=== PATIENT | female | born 2000 | race Two or more races ===

== ENCOUNTER 2020-03-03 09:31 | Day surgery (SDC) | payer BC, MEDICAID ==
[~2020-03-03 09:31] MED LIST: Sodium Chloride 0.9% 10 ML Syringe FLUSH PRN; cefOXitin 2 GM Vial IVPUSH ONE; cefOXitin 2 GM in Sodium Chloride 0.9% 100 ML IV ONE
[2020-03-03] MEDS ORDERED: Ketorolac 30 MG/ML SDV IVPUSH ONE (09:32)
[2020-03-03] MEDS ORDERED: fentaNYL 100 MCG/2 ML SDV IV ONE ×2 (09:32)
[2020-03-03] MEDS ORDERED: Metoprolol Tartrate 5 MG/5 ML SDV IV ONE (09:32)
[2020-03-03] MEDS ORDERED: Ondansetron 4 MG/2 ML SDV IVPUSH ONE (09:32)
[2020-03-03] MEDS ORDERED: Rocuronium 50 MG/5 ML Vial IV ONE (09:32)
[2020-03-03] MEDS ORDERED: Propofol 200 MG/20 ML SDV IV ONE (09:32)
[2020-03-03] MEDS ORDERED: HYDROmorphone 2 MG/ML SDV IV ONE (09:32)
[2020-03-03] MEDS ORDERED: Sugammadex Sodium 200 MG/2 ML VIAL IV ONE (09:32)
[2020-03-03] MEDS ORDERED: Dexamethasone 4 MG/ML 5 ML MDV IVPUSH ONE (09:32)
[2020-03-03] MEDS ORDERED: Lactated Ringers 1,000 ML IV ONE (09:32)
[2020-03-03] MEDS ORDERED: Lidocaine 2% 5 ML SDV INJECT ONE (09:32)
[2020-03-03] MEDS ORDERED: Midazolam 1 MG/ML 2 ML SDV IV ONE (09:32)
[2020-03-03] MEDS: Lactated Ringers 1,000 ML IV SCH ×2 (10:15→12:53)
[2020-03-03] MEDS ORDERED: Lidocaine 1% with EPINEPHrine 1:100,000 20 ML MDV INJECT ONE (11:30)
[2020-03-03] MEDS ORDERED: Bupivacaine 0.5% 30 ML SDV INJECT ONE (11:30)
--- NOTE | 2020-03-03 12:32 | PCM.OPNOTE ---
- General Post-Op/Procedure Note Date of Surgery/Procedure: 03/03/20 Operative Procedure(s): lap cholecystectomy Findings: critical view obtained. gallbladder with multiple gallstones Pre Op Diagnosis: gallstones without obstruction or cholecystitis Post-Op Diagnosis: Same Anesthesia Technique: General ET Tube, Local (10 ml 1% lido with epi/0.5% buvipicaine) Primary Surgeon: Ramesh Caldwell Anesthesia Provider: Kareem Hawkins Pathology: gallbladder and contents Complications: None Condition: Good Free Text/Narrative:: see dictation
[2020-03-03] MEDS ORDERED: Acetaminophen/HYDROcodone 325-5 MG Tab PO PRN (12:37)
[2020-03-03] MEDS ORDERED: Albuterol 0.083% 2.5 MG/3 ML Neb Soln NEB ONE (12:46)
[2020-03-03 13:47] VITALS: BP 103/60; PULSE 97
--- NOTE | 2020-03-03 14:15 | OR ---
DATE OF OPERATION: 03/03/2020 SURGEON: Ramesh Caldwell MD PROCEDURE PERFORMED: Laparoscopic cholecystectomy. PREOPERATIVE DIAGNOSIS: Cholelithiasis without obstruction or cholecystitis. POSTOPERATIVE DIAGNOSIS: Cholelithiasis without obstruction or cholecystitis. INDICATIONS FOR PROCEDURE: This is a 19-year-old female who was referred with symptomatic gallstones. She was offered and accepted a laparoscopic cholecystectomy. INTRAOPERATIVE FINDINGS: As follows: A critical view was obtained. The gallbladder was noted to be packed with gallstones. During the procedure, a total of 10 mL of 1:1 mixture of 1% lidocaine with epinephrine and 0.5% bupivacaine was used to infiltrate our trocar sites. DESCRIPTION OF OPERATION: After an excellent general anesthetic was administered via endotracheal tube, the patient was prepped and draped in usual sterile manner. Local was used to first infiltrate the area just below the umbilicus in the midline. A small vertical midline incision was carried out. Blunt dissection was carried out exposing the fascia. Two stay sutures of 0 Vicryl were placed on either side of the midline fascia. This allowed us to elevate the fascia and incised it with a #15 scalpel blade and entered the peritoneal cavity. After digital palpation to ensure no adhesions, a 10.5 mm Olegario trocar was inserted into the patient's abdomen. The abdomen was then insufflated to 15 mmHg using carbon dioxide. The patient was placed in reverse Trendelenburg position with an airplane to the left and three 5 mm ports were placed, one in the midline epigastrium and two below the right costal margin at the proximal level of the midclavicular and anterior axillary line. This was done by infiltrating the full thickness of the abdominal wall making a stab incision and then inserting the trocars. The gallbladder was easily visualized. This was grasped and retracted in a cephalad fashion. The infundibulum was grasped and this allowed us to dissect free the cystic duct and the cystic artery. After obtaining the critical view, 2 clips were placed proximally on the cystic duct and one distally and two clips were placed proximally on the cystic artery and one distally and the structures were transected. Careful L- hook cautery dissection was then used to dissect the gallbladder free from the gallbladder fossa. The specimen was passed into a specimen bag and delivered out through the periumbilical port. The area of the gallbladder fossa was irrigated. No active bleeding was noted and excellent hemostasis was noted. The right hepatic gutter was irrigated until clear as well. Three 5 mm ports were then removed under direct visualization and the pneumoperitoneum was released. The periumbilical fascial defect was closed with a [id number] 0 Vicryl and the 2-0 Vicryl stay sutures were tied to each other as well. The skin was closed with ghanshyam. Needle, sponge, and instrument counts were reported as correct. The patient was taken to recovery room in good condition. /[id number] /MODL
== END 2020-03-03 14:15 | disposition home or self-care (01) ==
LOC: FB.SDS 09:31
PROVIDERS: ATTEND Surgery
DX: K80.10 Calculus of gallbladder with chronic cholecystitis without obstruction (principal); E03.9 Hypothyroidism, unspecified; Z79.899 Other long term (current) drug therapy
CPT/HCPCS: 00790; 47562; 81025; 88304; 94150; A9270; J0694; J1100; J1170; J1885; J2001; J2250; J2405; J2704; J3010; J3490; J7120

== ENCOUNTER 2021-01-20 10:38 | Emergency (ER) | payer MEDICAID ==
--- NOTE | 2021-01-20 11:10 | EDM.PDOC ---
ED HPI GENERAL MEDICAL PROBLEM - General Stated Complaint: NOT FEELING WELL Time Seen by Provider: 01/20/21 11:08 Source of Information: Reports: Patient History Limitations: Reports: No Limitations - History of Present Illness INITIAL COMMENTS - FREE TEXT/NARRATIVE: 20-year-old female who had onset of fever, nasal congestion, sore throat and generalized malaise on 01/16/2021. She has been seen at the clinic on the , the in the first. Yesterday she was having ear pain on the right and she was placed on an antibiotic to treat for an ear infection. She states that her fevers mostly have been at night and she has had 103F. She reports the vomiting has mostly been when she has tried to eat and she states she has had 2 episodes of vomiting yesterday but none today. She has been able to drink liquids without vomiting. She feels very hungry and does not feel that she can eat. His have sore throat and right ear pain that she rates as an 8/10. It is sharp and stabbing. She has had no diarrhea. No weakness or dizziness. No abdominal pain. She states she just feels hungry and can't eat There are no other associated signs or symptoms. There are no other modifying factors. 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) - Related Data Allergies Allergy/AdvReac Type Severity Reaction Status Date / Time No Known Allergies Allergy Verified 03/03/20 10:07 Home Meds: Home Meds DULoxetine [Cymbalta] 30 mg PO DAILY 03/02/20 [History] Ondansetron [Zofran ODT] 4 mg PO Q6H PRN #12 tab.dis 01/20/21 [Rx] Past Medical History HEENT History: Reports: Impaired Vision 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: MENORRHAGIA WITH REGULAR CYCLE Neurological History: Reports: Headaches, Chronic, Vertigo Endocrine/Metabolic History: Reports: Hypothyroidism Hematologic History: Reports: Anemia - Past Surgical History GI Surgical History: Reports: Cholecystectomy Social & Family History - Tobacco Use Tobacco Use Status *Q: Unknown Ever Used Tobacco (Nonsmoker) - Caffeine Use Caffeine Use: Reports: Coffee - Alcohol Use Alcohol Use History: No ED ROS GENERAL - Review of Systems Review Of Systems: See Below Constitutional: Reports: Fever, Chills, Malaise HEENT: Reports: Ear Pain, Throat Pain, Other (Nasal congestion) Respiratory: Reports: Cough. Denies: Shortness of Breath Cardiovascular: Denies: Chest Pain, Palpitations GI/Abdominal: Reports: Nausea, Vomiting. Denies: Abdominal Pain : Denies: Dysuria, Frequency Musculoskeletal: Denies: Neck Pain, Arm Pain Skin: Denies: Diaphoresis, Rash Neurological: Denies: Dizziness, Headache Hematologic/Lymphatic: Reports: Anemia ED EXAM, GENERAL - Physical Exam Exam: See Below Exam Limited By: No Limitations General Appearance: Alert, WD/WN, No Apparent Distress Eye Exam: Bilateral Eye: EOMI, Normal Inspection (Sclera are anicteric) Ears: Normal External Exam, Hearing Grossly Normal Ear Exam: Bilateral Ear: Auricle Normal Nose: Nasal Swelling, Nasal Drainage Throat/Mouth: Normal Voice, No Airway Compromise, Other (Posterior pharyngeal erythema. No evidence of peritonsillar abscess.) Head: Atraumatic, Normocephalic Neck: Normal Inspection, Supple, Full Range of Motion, Lymphadenopathy (R), Lymphadenopathy (L) Respiratory/Chest: No Respiratory Distress, Lungs Clear, Normal Breath Sounds, No Accessory Muscle Use, Chest Non-Tender Cardiovascular: Normal Peripheral Pulses, Regular Rate, Rhythm, No JVD, No Murmur Peripheral Pulses: 2+: Radial (L), Radial (R), Dorsalis Pedis (L), Dorsalis Pedis (R) GI/Abdominal: Normal Bowel Sounds, Soft, Non-Tender, No Mass Back Exam: Normal Inspection, Full Range of Motion Extremities: Normal Inspection, Normal Range of Motion, No Pedal Edema, Normal Capillary Refill Neurological: Alert, Oriented, CN II-XII Intact, Normal Cognition, No Motor/Sensory Deficits Psychiatric: Normal Mood Skin Exam: Warm, Dry, Intact, Normal Color, No Rash Course - Vital Signs Last Recorded V/S: Last Vital Signs Temp 36.4 C 01/20/21 11:31 Pulse 81 01/20/21 11:31 Resp 17 01/20/21 11:31 BP 119/53 L 01/20/21 11:31 Pulse Ox 98 01/20/21 11:31 - Orders/Labs/Meds Labs: Laboratory Tests 01/20/21 Range/Units 11:11 SARS-CoV-2 RNA (UNRULY) Negative (NEGATIVE) Meds: Medications Discontinued Medications Generic Name Dose Route Start Last Admin Trade Name Freq PRN Reason Stop Dose Admin Ondansetron HCl 4 mg 01/20/21 11:32 01/20/21 12:00 Ondansetron 4 Mg Tab.Dis PO 01/20/21 11:33 4 mg ONETIME ONE Administration - Re-Assessments/Exams Free Text/Narrative Re-Assessment/Exam: 01/20/21 12:24: Rapid Covid test was negative. The patient reports that her nausea is decreased after the Zofran. She has had no vomiting here. She has remained hemodynamically stable. My exam of her ears showed no evidence of infection. She does have the pharyngitis and I have told her that she should continue the antibiotics that she was given yesterday. I will also give the patient a prescription of Zofran that she can use for nausea. She really needs to increase her fluid intake. She can take ibuprofen and Tylenol as needed for fever. Precautions and reasons for return to the emergency department were discussed with the patient while she was in the emergency department and were detailed in the patient's discharge instructions. Departure - Departure Time of Disposition: 12:30 Disposition: Home, Self-Care 01 Condition: Good Clinical Impression: Pharyngitis Qualifiers: Pharyngitis/tonsillitis etiology: unspecified etiology Qualified Code(s): J02.9 - Acute pharyngitis, unspecified Vomiting Qualifiers: Vomiting type: unspecified Vomiting Intractability: non-intractable Nausea presence: with nausea Qualified Code(s): R11.2 - Nausea with vomiting, unspecified - Discharge Information Prescriptions: Ondansetron [Zofran ODT] 4 mg PO Q6H PRN #12 tab.dis PRN Reason: Nausea/Vomiting Instructions: Nausea and Vomiting, Adult, [id number], Pharyngitis, [id number] Referrals: PCP,Not In Area [Primary Care Provider] - Forms: ED Department Discharge Additional Instructions: Your rapid Covid test again was negative today. Your ear did not appear to be infected on my exam. Your throat is still red. I would recommend that you take the antibiotic prescribed yesterday and complete this antibiotic as directed by the doctor yesterday. You also need to increase your fluid intake. You can take Tylenol and ibuprofen as needed for fever or pain. I also have sent a prescription for Zofran (nausea medicine) to your pharmacy in [place] ([facility]). You should take this as needed for nausea or vomiting. Back to the emergency department for acquits down, difficulty breathing, or weakness or any other concerning signs or symptoms.
[2021-01-20] MEDS ORDERED: Ondansetron 4 MG Tab.DIS PO ONE (11:32)
[2021-01-20 11:36] VITALS: BP 119/53; PULSE 81
== END 2021-01-20 12:50 | disposition home or self-care (01) ==
LOC: FB.ED 10:38
DX: J02.9 Acute pharyngitis, unspecified (principal); R11.2 Nausea with vomiting, unspecified; E03.9 Hypothyroidism, unspecified; Z79.899 Other long term (current) drug therapy; Z20.822 Contact with and (suspected) exposure to COVID-19
CPT/HCPCS: 87635; 99284; A9270; U0002

== ENCOUNTER 2021-04-11 23:31 | Emergency (ER) | payer MEDICAID ==
[2021-04-11] MEDS ORDERED: Sodium Chloride 0.9% 10 ML Syringe FLUSH PRN (23:37)
[2021-04-12] MEDS: Sodium Chloride 0.9% 1,000 ML IV ONE (01:54)
[2021-04-12] MEDS: Ondansetron 4 MG/2 ML SDV IVPUSH ONE (02:00)
[2021-04-12] MEDS: Morphine 4 MG/ML VIAL IVPUSH ONE (02:04)
[2021-04-12] MEDS: Ketorolac 30 MG/ML SDV IVPUSH ONE (02:11)
[2021-04-12] MEDS: Iopamidol 755 Mg/ML 100 ML Bottle IV ONE (02:21)
--- NOTE | 2021-04-12 02:43 | EDM.PDOC ---
ED HPI GENERAL MEDICAL PROBLEM - General Chief Complaint: Abdominal Pain Stated Complaint: ABD PAIN, COUGH, SORE THROAT Time Seen by Provider: 04/12/21 01:20 Source of Information: Reports: Patient History Limitations: Reports: No Limitations - History of Present Illness INITIAL COMMENTS - FREE TEXT/NARRATIVE: Patient presented to the ED because of headache and abdominal pain. the headache is bifrontal,throbbing with associated nausea and vomiting x1. She also c/o epigastric and RUQ pain, 02/27. there is no fever, chills, cough or cold symptoms. No UTI s/s or changes in bowel movements. 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: MENORRHAGIA WITH REGULAR CYCLE Other Musculoskeletal History: ULNAR NEUROPATHY OF BOTH UPPER EXTREMITIES Neurological History: Reports: Headaches, Chronic, Vertigo Other Psychiatric History: PSYCHOLOGICAL/ PHYSICAL STRESS Endocrine/Metabolic History: Reports: Hypothyroidism Other Endocrine/Metabolic History: HYPOTHYROIDISM Hematologic History: Reports: Anemia - Past Surgical History GI Surgical History: Reports: Cholecystectomy Social & Family History - Family History Family Medical History: No Pertinent Family History - Tobacco Use Tobacco Use Status *Q: Never Tobacco User - Caffeine Use Caffeine Use: Reports: Energy Drinks Other Caffeine Use: rare - Recreational Drug Use Recreational Drug Use: No ED ROS GENERAL - Review of Systems Review Of Systems: See Below Constitutional: Reports: No Symptoms HEENT: Reports: No Symptoms Cardiovascular: Reports: No Symptoms Endocrine: Reports: No Symptoms GI/Abdominal: Reports: Abdominal Pain : Reports: No Symptoms Musculoskeletal: Reports: No Symptoms Skin: Reports: No Symptoms Neurological: Reports: No Symptoms Psychiatric: Reports: No Symptoms ED EXAM, GI/ABD - Physical Exam Exam: See Below Exam Limited By: No Limitations General Appearance: Alert, No Apparent Distress Ears: Normal External Exam Nose: Normal Inspection Throat/Mouth: Normal Inspection Head: Atraumatic Neck: Normal Inspection, Supple, Non-Tender Respiratory/Chest: No Respiratory Distress, Lungs Clear, Normal Breath Sounds Cardiovascular: Normal Peripheral Pulses, Regular Rate, Rhythm, No Edema, No JVD, No Murmur, No Rub GI/Abdominal Exam: Normal Bowel Sounds, Soft, No Organomegaly, Other (epigastric tenderness) Extremities: Normal Inspection, Normal Range of Motion, Non-Tender, No Pedal Edema, Normal Capillary Refill Neurological: Alert, Oriented, CN II-XII Intact Psychiatric: Normal Affect, Normal Mood Skin Exam: Warm, Intact Course - Vital Signs Text/Narrative:: Lab and CT abd/pelvis result was reviewed and discussed with patient Toradol 30 mg IV x1 Morphine 4 mg IV x1 Zofran 4 mg IV x1 Protonix 80 mg IV x1 NS 1 L bolus Last Recorded V/S: Last Vital Signs Temp 37.2 C 04/12/21 03:40 Pulse 87 04/12/21 03:40 Resp 18 04/12/21 03:40 BP 106/68 04/12/21 03:40 Pulse Ox 99 04/12/21 03:40 - Orders/Labs/Meds Labs: Laboratory Tests 04/11/21 04/11/21 04/11/21 Range/Units 22:40 22:40 22:40 WBC 9.5 (3.0-10.3) x10-3/uL RBC 4.69 (3.60-5.20) x10(6)uL Hgb 12.0 (11.4-15.5) g/dL Hct 37.0 (34.2-48.2) % MCV 78.8 (76.7-100.5) fL MCH 25.6 (23.9-33.9) pg MCHC 32.6 (31.9-34.8) g/dL RDW 16.7 H (12.3-16.5) % Plt Count 319 (151-488) x10(3)uL MPV 9.5 (7.1-12.4) fL Neut % (Auto) 61.6 (30.8-76.2) % Lymph % (Auto) 26.5 (18.4-52.1) % Peach % (Auto) 6.0 (4.4-15.7) % Eos % (Auto) 5.0 (0.6-8.1) % Baso % (Auto) 0.9 (0.2-1.5) % Neut # (Auto) 5.8 (1.5-6.3) x10-3/uL Lymph # (Auto) 2.5 (1.0-4.4) x10-3/uL Peach # (Auto) 0.6 (0.3-1.0) x10-3/uL Eos # (Auto) 0.5 (0.0-0.8) x10-3/uL Baso # (Auto) 0.1 (0.0-0.1) x10-3/uL Sodium 140 (135-145) mmol/L Potassium 3.7 (3.5-5.3) mmol/L Chloride 105 (100-110) mmol/L Carbon Dioxide 26 (21-32) mmol/L BUN 13 (7-18) mg/dL Creatinine 1.0 (0.55-1.02) mg/dL Est Cr Clr Drug Dosing TNP Estimated GFR (MDRD) > 60 (>60) BUN/Creatinine Ratio 13.0 (9-20) Glucose 101 (80-116) mg/dL Calcium 9.2 (8.6-10.2) mg/dL Total Bilirubin 0.3 (0.1-1.3) mg/dL AST 19 (5-25) IU/L ALT 30 (12-36) U/L Alkaline Phosphatase 125 H (56-112) IU/L Total Protein 7.8 (6.0-8.0) g/dL Albumin 3.7 (3.5-5.2) g/dL Globulin 4.1 g/dL Albumin/Globulin Ratio 0.9 Amylase 28 (25-115) U/L Lipase 135 (73-393) U/L Urine Color (YELLOW) Urine Appearance (CLEAR) Urine pH (5.0-6.5) Ur Specific [place] (1.010-1.025) Urine Protein (NEGATIVE) mg/dL Urine Glucose (UA) (NORMAL) mg/dL Urine Ketones (NEGATIVE) mg/dL Urine Occult Blood (NEGATIVE) Urine Nitrite (NEGATIVE) Urine Bilirubin (NEGATIVE) Urine Urobilinogen (NEGATIVE) mg/dL Ur Leukocyte Esterase (NEGATIVE) Urine RBC (0-5) Urine WBC (0-5) Ur Squamous Epith Cells (NS,R,O) Urine Bacteria (NS) Urine HCG, Qual (NEGATIVE) 04/12/21 04/12/21 Range/Units 01:45 01:45 WBC (3.0-10.3) x10-3/uL RBC (3.60-5.20) x10(6)uL Hgb (11.4-15.5) g/dL Hct (34.2-48.2) % MCV (76.7-100.5) fL MCH (23.9-33.9) pg MCHC (31.9-34.8) g/dL RDW (12.3-16.5) % Plt Count (151-488) x10(3)uL MPV (7.1-12.4) fL Neut % (Auto) (30.8-76.2) % Lymph % (Auto) (18.4-52.1) % Peach % (Auto) (4.4-15.7) % Eos % (Auto) (0.6-8.1) % Baso % (Auto) (0.2-1.5) % Neut # (Auto) (1.5-6.3) x10-3/uL Lymph # (Auto) (1.0-4.4) x10-3/uL Peach # (Auto) (0.3-1.0) x10-3/uL Eos # (Auto) (0.0-0.8) x10-3/uL Baso # (Auto) (0.0-0.1) x10-3/uL Sodium (135-145) mmol/L Potassium (3.5-5.3) mmol/L Chloride (100-110) mmol/L Carbon Dioxide (21-32) mmol/L BUN (7-18) mg/dL Creatinine (0.55-1.02) mg/dL Est Cr Clr Drug Dosing Estimated GFR (MDRD) (>60) BUN/Creatinine Ratio (9-20) Glucose (80-116) mg/dL Calcium (8.6-10.2) mg/dL Total Bilirubin (0.1-1.3) mg/dL AST (5-25) IU/L ALT (12-36) U/L Alkaline Phosphatase (56-112) IU/L Total Protein (6.0-8.0) g/dL Albumin (3.5-5.2) g/dL Globulin g/dL Albumin/Globulin Ratio Amylase (25-115) U/L Lipase (73-393) U/L Urine Color Yellow (YELLOW) Urine Appearance Clear (CLEAR) Urine pH 6.5 (5.0-6.5) Ur Specific [place] 1.010 (1.010-1.025) Urine Protein Negative (NEGATIVE) mg/dL Urine Glucose (UA) Normal (NORMAL) mg/dL Urine Ketones Negative (NEGATIVE) mg/dL Urine Occult Blood Negative (NEGATIVE) Urine Nitrite Negative (NEGATIVE) Urine Bilirubin Negative (NEGATIVE) Urine Urobilinogen Normal (NEGATIVE) mg/dL Ur Leukocyte Esterase Negative (NEGATIVE) Urine RBC 0-5 (0-5) Urine WBC 0-5 (0-5) Ur Squamous Epith Cells Rare (NS,R,O) Urine Bacteria Occasional H (NS) Urine HCG, Qual Negative (NEGATIVE) Meds: Medications Discontinued Medications Generic Name Dose Route Start Last Admin Trade Name Sarkisq PRN Reason Stop Dose Admin Sodium Chloride 1,000 mls @ 999 mls/hr 04/12/21 01:46 04/12/21 01:54 Normal Saline IV 04/12/21 02:46 999 mls/hr .BOLUS ONE Administration Iopamidol 100 ml 04/12/21 02:03 04/12/21 02:21 Iopamidol 755 Mg/Ml 100 Ml Bottle IV 04/12/21 02:04 100 ml . DIRECTED ONE Administration Ketorolac Tromethamine 30 mg 04/12/21 01:48 04/12/21 02:11 Ketorolac 30 Mg/Ml Sdv IVPUSH 04/12/21 01:49 30 mg ONETIME ONE Administration Morphine Sulfate 4 mg 04/12/21 01:47 04/12/21 02:04 Morphine 4 Mg/Ml Vial IVPUSH 04/12/21 01:48 4 mg ONETIME ONE Administration Ondansetron HCl 4 mg 04/12/21 01:49 04/12/21 02:00 Ondansetron 4 Mg/2 Ml Sdv IVPUSH 04/12/21 01:50 4 mg ONETIME ONE Administration Pantoprazole Sodium 80 mg 04/12/21 02:47 04/12/21 02:56 Pantoprazole 40 Mg Vial IVPUSH 04/12/21 02:48 80 mg NOW STA Administration Sodium Chloride 10 ml 04/11/21 23:37 Sodium Chloride 0.9% 10 Ml Syringe FLUSH ASDIRECTED PRN Keep Vein Open Departure - Departure Time of Disposition: 02:45 Disposition: Home, Self-Care 01 Condition: Good Clinical Impression: Gastritis, GERD (gastroesophageal reflux disease) - Discharge Information Prescriptions: Pantoprazole Sodium [Protonix] 40 mg PO DAILY #30 suspdr.pkt Instructions: Gastritis, Adult, [id number], Food Choices for Gastroesophageal Reflux Disease, Adult, [id number] Referrals: Melly Perla NP [Primary Care Provider] - Forms: ED Department Discharge Additional Instructions: Please read discharge instructions on Gastritis(inflammation of the stomach) and GERD/Acid reflux Read the list of food and beverages to avoid for Acid Reflux Mark protonix/Pantoprazole 40 mg daily Follow up with your doctor in a week Sepsis Event Note (ED) - Evaluation Sepsis Screening Result: No Definite Risk
[2021-04-12] MEDS: Pantoprazole 40 MG Vial IVPUSH STA (02:56)
[2021-04-12 03:41] VITALS: BP 106/68; PULSE 87
== END 2021-04-12 03:40 | disposition home or self-care (01) ==
LOC: FB.ED 23:31
DX: K21.9 Gastro-esophageal reflux disease without esophagitis (principal); K29.70 Gastritis, unspecified, without bleeding
CPT/HCPCS: 36415; 74177; 80053; 81001; 81025; 82150; 83690; 85025; 96374; 96375; 99284-25; C9113; J1885; J2270; J2405; J7030; Q9967

== ENCOUNTER 2021-08-31 22:21 | Emergency (ER) | payer MEDICAID, OTHER ==
[2021-08-31 22:31] VITALS: BP 110/70; PULSE 101
[2021-08-31] MEDS ORDERED: Ketorolac 30 MG/ML SDV IM ONE (23:12)
[2021-08-31] MEDS ORDERED: Orphenadrine 100 MG Tab.ER ONE (23:32)
[2021-08-31] MEDS ORDERED: Orphenadrine 100 MG Tab.ER PO ONE (23:36)
[2021-09-01] MEDS ORDERED: Orphenadrine 100 MG Tab.ER PO ONE (23:13)
== END 2021-09-01 00:34 | disposition home or self-care (01) ==
LOC: FB.ED 22:21
DX: M54.50 Low back pain, unspecified (principal)
CPT/HCPCS: 81001; 81025; 96372; 99283; A9270-GY; J1885

== ENCOUNTER 2022-09-30 22:23 | Emergency (ER) | payer MEDICAID ==
[2022-09-30] MEDS ORDERED: Acetaminophen/HYDROcodone 325-5 MG Tab PO ONE (22:24)
[2022-09-30] MEDS ORDERED: Morphine 10 MG/ML SDV IM ONE (22:43)
[2022-09-30] MEDS ORDERED: hydrOXYzine HCl 50 MG/ML SDV IM ONE (22:43)
[2022-10-01 02:53] VITALS: BP 146/82; PULSE 92
== END 2022-10-01 00:52 | disposition home or self-care (01) ==
LOC: FB.ED 22:23
DX: S42.402A Unspecified fracture of lower end of left humerus, initial encounter for closed fracture (principal); W10.9XXA Fall (on) (from) unspecified stairs and steps, initial encounter; Y92.039 Unspecified place in apartment as the place of occurrence of the external cause
CPT/HCPCS: 73080; 73200; 96372; 99284; A9270; J2270; J3410

== ENCOUNTER 2023-01-22 17:03 | Emergency (ER) | payer MEDICAID ==
[2023-01-22 17:35] LABS: BASOPHILS PERCENT AUTO 0.3 % (0.2-1.5); EOSINOPHILS ABSOLUTE AUTO 0.3 x10-3/uL (0.0-0.8); EOSINOPHILS PERCENT AUTO 3.2 % (0.6-8.1); HEMATOCRIT 33.1 % (34.2-48.2); HEMOGLOBIN 10.4 g/dL (11.4-15.5); LYMPHOCYTES ABSOLUTE AUTO 1.5 x10-3/uL (1.0-4.4); LYMPHOCYTES PERCENT AUTO 18.8 % (18.4-52.1); MEAN CORPUSCULAR HEMOGLOBIN 23.7 pg (23.9-33.9); MEAN CORPUSCULAR HGB CONC 31.4 g/dL (31.9-34.8); MEAN CORPUSCULAR VOLUME 75.4 fL (76.7-100.5); MEAN PLATELET VOLUME 9.2 fL (7.1-12.4); MONOCYTES ABSOLUTE AUTO 0.5 x10-3/uL (0.3-1.0); MONOCYTES PERCENT AUTO 5.9 % (4.4-15.7); NEUTROPHILS ABSOLUTE AUTO 5.7 x10-3/uL (1.5-6.3); NEUTROPHILS PERCENT AUTO 71.8 % (30.8-76.2); PLATELET COUNT,PLT 395 x10(3)uL (151-488); RED BLOOD CELL COUNT 4.38 x10(6)uL (3.60-5.20); RED CELL DISTRIBUTION WIDTH 16.4 % (12.3-16.5); WHITE BLOOD CELL COUNT,WBC 7.9 x10-3/uL (3.0-10.3)
[2023-01-22 17:36] LABS: BLOOD UREA NITROGEN,BUN 11 mg/dL (7-18); BUN/CREATININE RATIO 13.8 (9-20); CALCIUM 8.9 mg/dL (8.6-10.2); CARBON DIOXIDE,CO2 25 mmol/L (21-32); CHLORIDE,CL 103 mmol/L (100-110); CREATININE 0.8 mg/dL (0.55-1.02); EST CRCL DRUG DOSING (CG) 87.24 mL/min; ESTIMATED GFR 107 mL/min (>60); GLUCOSE RANDOM 111 mg/dL (80-116); POTASSIUM,K 3.7 mmol/L (3.5-5.3); SODIUM,NA 137 mmol/L (135-145)
[2023-01-22 17:42] LABS: A/G RATIO 0.8; ALANINE AMINOTRANSFERASE,ALT 23 U/L (12-36); ALBUMIN 3.2 g/dL (3.5-5.2); ALKALINE PHOSPHATASE 139 IU/L (56-112); ASPARTATE AMNIOTRANSFERASE,AST 16 IU/L (5-25); BILIRUBIN TOTAL 0.3 mg/dL (0.1-1.3); PROTEIN TOTAL,TP 7.1 g/dL (6.0-8.0)
[2023-01-22 17:52] LABS: C-REACTIVE PROTEIN 2.81 mg/dL (<0.33); HCG QUANTITATIVE < 5 mIU/mL (<5); TSH ULTRASENSITIVE 11.88 IU/mL (0.36-3.74)
[2023-01-22 18:09] VITALS: BP 119/73; PULSE 81
== END 2023-01-22 18:03 | disposition home or self-care (01) ==
LOC: FB.ED 17:03
DX: D64.9 Anemia, unspecified (principal); M54.50 Low back pain, unspecified; E03.9 Hypothyroidism, unspecified
CPT/HCPCS: 36415; 80053; 84443; 84702; 85025; 86140; 99283

== ENCOUNTER 2023-06-15 20:52 | Emergency (ER) | payer MEDICAID, MEDICARE ==
[2023-06-15 21:31] VITALS: BP 112/72; PULSE 92
[2023-06-15 22:09] LABS: BASOPHILS PERCENT AUTO 0.2 % (0.2-1.5); EOSINOPHILS ABSOLUTE AUTO 0.1 x10-3/uL (0.0-0.8); EOSINOPHILS PERCENT AUTO 0.9 % (0.6-8.1); HEMATOCRIT 33.4 % (34.2-48.2); HEMOGLOBIN 10.4 g/dL (11.4-15.5); LYMPHOCYTES ABSOLUTE AUTO 1.2 x10-3/uL (1.0-4.4); MEAN CORPUSCULAR HEMOGLOBIN 23.4 pg (23.9-33.9); MEAN CORPUSCULAR HGB CONC 31.2 g/dL (31.9-34.8); MEAN CORPUSCULAR VOLUME 75.1 fL (76.7-100.5); MEAN PLATELET VOLUME 9.2 fL (7.1-12.4); MONOCYTES ABSOLUTE AUTO 0.5 x10-3/uL (0.3-1.0); MONOCYTES PERCENT AUTO 7.9 % (4.4-15.7); NEUTROPHILS ABSOLUTE AUTO 5.1 x10-3/uL (1.5-6.3); PLATELET COUNT,PLT 319 x10(3)uL (151-488); RED BLOOD CELL COUNT 4.45 x10(6)uL (3.60-5.20); RED CELL DISTRIBUTION WIDTH 16.9 % (12.3-16.5); WHITE BLOOD CELL COUNT,WBC 6.9 x10-3/uL (3.0-10.3)
[2023-06-15 22:13] LABS: BLOOD UREA NITROGEN,BUN 13 mg/dL (7-18); BUN/CREATININE RATIO 16.3 (9-20); CALCIUM 8.7 mg/dL (8.6-10.2); CARBON DIOXIDE,CO2 27 mmol/L (21-32); CHLORIDE,CL 105 mmol/L (100-110); CREATININE 0.8 mg/dL (0.55-1.02); ESTIMATED GFR 106 mL/min (>60); GLUCOSE RANDOM 95 mg/dL (80-116); POTASSIUM,K 3.9 mmol/L (3.5-5.3); SODIUM,NA 136 mmol/L (135-145)
[2023-06-15 22:19] LABS: A/G RATIO 0.8; ALANINE AMINOTRANSFERASE,ALT 22 U/L (12-36); ALBUMIN 2.9 g/dL (3.5-5.2); ALKALINE PHOSPHATASE 84 IU/L (56-112); ASPARTATE AMNIOTRANSFERASE,AST 10 IU/L (5-25); BILIRUBIN TOTAL 0.4 mg/dL (0.1-1.3); PROTEIN TOTAL,TP 6.5 g/dL (6.0-8.0)
[2023-06-15 22:28] LABS: C-REACTIVE PROTEIN 3.05 mg/dL (<0.50); TSH ULTRASENSITIVE 4.61 IU/mL (0.36-3.74)
== END 2023-06-15 23:22 | disposition home or self-care (01) ==
LOC: FB.ED 20:52
DX: A08.4 Viral intestinal infection, unspecified (principal); E88.09 Other disorders of plasma-protein metabolism, not elsewhere classified; R79.82 Elevated C-reactive protein (CRP); D50.9 Iron deficiency anemia, unspecified
CPT/HCPCS: 36415; 80053; 84443; 85025; 86140; 99283; 99284